=== PATIENT | male | born 1940 | race Caucasian/White ===

== ENCOUNTER 2019-04-17 06:24 | Inpatient (IN) | payer MEDICARE, BC ==
[2019-04-06 09:19] LABS: ABSOLUTE BASOPHILS 0.1 thou/uL (0.0-0.2); ABSOLUTE EOSINOPHILS 0.2 thou/uL (0.0-0.7); ABSOLUTE MONOCYTES 0.4 thou/uL (0.0-1.2); ABSOLUTE NEUTROPHILS 2.9 thou/uL (1.6-8.1); BASOPHILS 1.2 %; EOSINOPHILS 3.7 %; HEMATOCRIT 40.6 % (42.0-52.0); HEMOGLOBIN 13.5 gm/dL (14.0-18.0); LYMPHOCYTES 35.5 %; MCH 32.7 pg (26.0-34.0); MCHC 33.3 g/dL (28.0-37.0); MONOCYTES 7.4 %; MPV 8.9 fl. (7.2-11.1); NUCLEATED RBCS 0 /100WBC; PLATELET COUNT* 237 thou/uL (150-400); POLYS 52.2 %; RBC 4.14 mil/uL (4.50-6.00); RDW-CV 13.9 % (10.5-14.5); WBC 5.6 thou/uL (4.0-11.0)
[2019-04-06 09:34] LABS: APTT 25.6 Seconds (25.0-31.3); PROTIME 10.3 Seconds (9.20-11.50)
[2019-04-06 09:39] LABS: ALBUMIN 3.9 g/dL (3.4-5.0); CREATININE 1.3 mg/dL (0.6-1.3); POTASSIUM 4.1 mmol/L (3.5-5.1); TOTAL BILIRUBIN 0.5 mg/dL (<0.1-1.0); TOTAL PROTEIN 7.6 g/dL (6.4-8.2)
[2019-04-06 10:19] LABS: ESR (SEDRATE) 6 mm/hr (0-20)
[2019-04-07 02:07] LABS: GLYCOHEMOGLOBIN (HGB A1C) 7.1 % (4.8-5.6)
[~2019-04-17] VITALS: Ht 182.9 cm; Wt 90.7 kg
--- NOTE | ~2019-04-17 | OP ---
[address] [address] OPERATIVE REPORT Name: JOAN BULLOCK Room: [address] IN M.R.#: [id number] Admission: 04/17/19 Attend Phys: Herbie Green DO Discharge: Date of : 42 Report #: [id number] THIS REPORT FOR: //name// cc: STEVEN DENIS NP, RUTENDO NP ~ THIS REPORT FOR: //name// CC: Herbie DENIS DICTATED BY: Adonay Morris DO DATE OF SERVICE: 04/17/2019 PREOPERATIVE DIAGNOSIS: Left knee severe osteoarthritis. POSTOPERATIVE DIAGNOSIS: Left knee severe osteoarthritis. OPERATION PERFORMED: Left total knee arthroplasty. SURGEON: Herbie Green DO ASSISTANTS: Adonay Morris DO and Abdi Kebede DO ESTIMATED BLOOD LOSS: 100 mL. ANTIBIOTICS: 600 mg of IV clindamycin given within 1 hour of skin incision. ANESTHESIA: Preoperative adductor canal block with general anesthesia and local infiltration of the posterior capsular structure. DRAINS: None. SPECIMENS: None. COMPLICATIONS: None. CONDITION: Stable. DISPOSITION: PACU to orthopedic floor. OPERATIVE IMPLANTS: The Perfecto Persona total knee system was used with following components: 1. A size H natural tibia component. 2. A size 11 narrow cruciate retaining femoral component. 3. A size 35 mm all poly patellar component. [facility] [address] [address] OPERATIVE REPORT Name: JOAN BULLOCK Room: [place] [address] ADM IN M.R.#: [id number] Admission: 04/17/19 Attend Phys: Herbie Green DO Discharge: Date of : 42 Report #: [id number] 4. A 12 mm height medial congruent articular surface and also 2 bags of Palacos bone cement with gentamicin were used for implantation. INDICATIONS FOR PROCEDURE: This patient is a pleasant 78-year-old male who is followed in orthopedic clinic regarding his longstanding left knee pain. X-rays were consistent with severe degenerative changes with valgus deformity. He tried conservative treatment over the last several years. He has attempted physical therapies, multiple injections ties including stem cells and corticosteroid. Despite trying these things, he continued to have severe pain, continued debility. Therefore, we did discuss proceeding with left total knee arthroplasty. Risks, indications, and treatment alternatives were discussed with the patient in the office setting and his informed consent was obtained DESCRIPTION OF PROCEDURE: The patient was taken to the operating suite and placed on operating table in supine position where general anesthesia was then induced. A well-padded tourniquet was placed on the left proximal thigh and of note this was inflated for a total of 74 minutes throughout the procedure at 300 mmHg. Left lower extremity was then sterilely prepped with ChloraPrep and draped free in the usual fashion. Timeout was then performed to confirm the safety checklist has been completed and all the present OR personnel were in agreement. Standard anterior incision was marked out over the knee. The extremity was elevated for gravity exsanguination and the tourniquet was inflated. A midline incision was made with a 20 blade scalpel was carried down through the skin and subcutaneous tissue down to level of the extensor mechanism. Full thickness flaps were developed. The new blade was then used to make the standard medial parapatellar arthrotomy. A subperiosteal sleeve was developed off the medial tibial plateau. This dissection was limited due to the valgus nature of the knee. The patella was then everted. The large portion of the infrapatellar fat pad was excised. Large osteophytes were removed with a rongeur. Access was then gained to the intramedullary canal with the large drill. The distal femur cutting block was initially set to 12 mm and this was pinned into position at 4 degrees of valgus. The cut was then made through the capture block. The bony wafer was removed. Attention was then taken to the proximal tibia. Extramedullary tibial cutting block and guide were placed and aligned in all planes. We did reference the high side, which was the medial tibial plateau in this case and did take an initial 10 mm cut through the capture block. The collateral ligaments and patellar tendon were protected while the cut was made through the capture block. The bony wafer was then removed. The knee was taken to full extension and our extension block was checked and there was found to be tight in both full extension and flexion. Therefore, we did proceed with an additional cut 2 mm from both the distal femur and the proximal tibia. The extension and flexion blocks were then once again checked and found to be symmetrical and able to obtain full extension. The pins were then removed. The knee was once again hyperflexed. The distal femur was then measured from anterior to posterior and the appropriate 3-degree external rotation holes were drilled. The size 11, 4-in-1 [place] [address] OPERATIVE REPORT Name: JOAN BULLOCK Room: [address] IN M.R.#: [id number] Admission: 04/17/19 Attend Phys: Herbie Green DO Discharge: Date of : 42 Report #: [id number] onto the distal femur. We confirmed this to be appropriate cut with an maggie wing. This was then pinned into position and the cut was made through the capture block. All the bony wafers were then removed. At this time, the remaining osteophytes and meniscal remnants were removed as well as the ACL and PCL remnant. Once we had excellent exposure to the proximal tibia, this was sized to the appropriate size. Tibial baseplate was aligned in the appropriate rotation and pinned into position. The appropriate size trial femur was then made impacted on to distal femur. Multiple size tibial bearings were then trialed. Ultimately a size 12 mm bearing gave full extension, full flexion, and excellent stability in all planes. Attention was then taken to patella. This was resurfaced with a freehand technique resecting approximately 8 mm of bone. The patella was appropriately sized and the three peg holes were drilled through the guide. A patellar button was then placed and taken through full range of motion and found to be tracking appropriately. At this time, the trial patella was removed and the peg holes were drilled in the femur and this was also removed. The tibia was prepared for final implantation with the reamer and cruciform punch. This was finally removed. The anesthetic cocktail was injected in the posterior capsular structures. The knee was then copiously irrigated. The bone cement was mixed on the back table and applied to the undersurface of the final components. This was also pressurized by hand and using the cement gun into the inner stitches of the bone. The final components were then impacted into position beginning with the tibia, followed by the femur and finally the patellar component, which was clamped in position. The knee was taken into full extension with a 12 mm bearing. The cement was allowed to completely harden with the knee in full extension. Once the cement was completely hardened, the knee was once again confirmed to have appropriate tension and the balance with a 12 mm spacer. Therefore, we did replace this trial spacer for the final component, which was appropriately locked into position. The knee was once again taken through final range of motion and found to be tracking appropriately and stable in all planes. The layered closure was then performed beginning with a #1 Vicryl suture in bawrld-aq-[id number] fashion throughout the extensor mechanism which was then oversewn with a #1 Stratafix suture. The PRP was injected through the capsule at this time. The subcutaneous layer was then reapproximated with simple buried 2-0 Vicryl suture followed by a running 3-0 Stratafix on the subcuticular layer. Skin glue was applied to the incision and allowed to dry, followed by application of Mepilex and thigh high CORKY hose. The patient was found to tolerate the procedure well with no apparent complications and was transferred to the PACU in stable condition. No apparent complications. Sponge and needle counts were correct per the OR personnel. ATTESTATION: Dr. Herbie Green was present for all critical aspects of surgery. By: [id number] Green DO /nt
[~2019-04-17 06:24] MED LIST: ASPIRIN EC325 MG PO; CENTRUM SILVER1 EAC4 PO; COQ1050 MG PO; FLAX SEED OIL1 EACH PO; GLUCOPHAGE1000 MG PO; JARDIANCE25 MG PO; LIPITOR40 MG PO; LOSARTAN-HCTZ1 EACH PO; NORVASC10 MG PO; OMEGA 3 1,0001 EACH PO
[2019-04-17 08:40] VITALS: BP 138/76
[2019-04-17 16:42] VITALS: BP 144/90
[2019-04-17 20:40] VITALS: BP 156/91
[2019-04-18] VITALS (7 sets, daily range): BP systolic 131–171; BP diastolic 85–101
[2019-04-18 03:12] LABS: HEMATOCRIT 37.2 % (42.0-52.0); HEMOGLOBIN 12.6 gm/dL (14.0-18.0)
[2019-04-18] MEDS ORDERED: ELIQUIS5 MG PO (09:57)
[2019-04-18] MEDS ORDERED: COLACE 100 MG100 MG PO (09:57)
[2019-04-18] MEDS ORDERED: OXYCODONE HCL 55 MG PO (09:57)
[2019-04-18] MEDS ORDERED: TRAMADOL 50 MG50 MG PO (09:57)
[2019-04-19 03:06] LABS: HEMATOCRIT 39.2 % (42.0-52.0); HEMOGLOBIN 13.1 gm/dL (14.0-18.0)
[2019-04-19 08:00] VITALS: BP 129/76
[2019-04-19 16:00] VITALS: BP 110/66
[2019-04-19 19:42] VITALS: BP 129/81
[2019-04-20] VITALS: BP 131/77
[2019-04-20 04:00] VITALS: BP 130/77
[2019-04-20 08:30] VITALS: BP 105/65
[2019-04-20 14:39] VITALS: BP 105/65
--- NOTE | 2019-04-21 14:53 | EKG ---
[place] [address] ELECTROCARDIOGRAM REPORT Name: JOAN BULLOCK Room: [address]#: [id number] Admission: 04/17/19 Attend Phys: Campos Esposito Discharge: 04/20/19 Date of : 42 Date of Service: 04/06/19 0911 Report #: [id number] THIS REPORT FOR: //name// [facility] Test Date: 2019-04-06 Test Time: 09:11:49 Pat Name: JOAN BULLOCK Department: Room: Gender: M Youth Director: : 1940 Requested By: Herbie Green Order Number: [id number] Reading MD: Giancarlo Osuna Measurements Intervals [place] Rate: 73 P: 54 CO: 165 QRS: -63 QRSD: 111 T: 48 QT: 379 QTc: 418 Interpretive Statements Sinus rhythm Left anterior fascicular block Low voltage, precordial leads Left ventricular hypertrophy Anterior Q waves, possibly due to LVH ST elevation, consider inferior injury No previous ECG available for comparison Electronically Signed On 04-06-2019 11:21:30 SE[employer]ER by Giancarlo Osuna [email or web address] <ELECTRONICALLY SIGNED> By: Giancarlo Osuna MD, FACC 04/06/19 1121 0 09 Giancarlo Osuna MD, FACC /EPI
== END 2019-04-20 16:11 | disposition home health service (06) | DRG 470 ==
LOC: M.TBA 06:24 → M.PRE 06:35 → M.ORTHSURG 11:18 → M.TBA 11:18 → M.ORTHSURG 14:50
PROVIDERS: Orthopaedic Surgery; ADMIT Internal Medicine
PROC: 0SRD0J9 Replacement of Left Knee Joint with Synthetic Substitute, Cemented, Open Approach (ICD-10-PCS; principal; 2019-04-17)
DX: M17.12 Unilateral primary osteoarthritis, left knee (principal); E11.9 Type 2 diabetes mellitus without complications; E78.00 Pure hypercholesterolemia, unspecified; I10 Essential (primary) hypertension; N40.0 Benign prostatic hyperplasia without lower urinary tract symptoms; Z86.73 Personal history of transient ischemic attack (TIA), and cerebral infarction without residual deficits; Z98.42 Cataract extraction status, left eye; Z98.41 Cataract extraction status, right eye; Z79.899 Other long term (current) drug therapy

== ENCOUNTER → 2019-10-16 | Outpatient (CLI) | payer MEDICARE, BC ==
[~2019-10-16] MED LIST changes: +COLACE 100 MG100 MG PO; +ELIQUIS5 MG PO; +OCUVITE TABLET1 EAC1 PO; +OXYCODONE HCL 55 MG PO; +TRAMADOL 50 MG50 MG PO
== END ==
LOC: M.CT 11:00
PROVIDERS: ATTEND Orthopaedic Surgery
DX: M25.511 Pain in right shoulder (principal); Z96.611 Presence of right artificial shoulder joint

== ENCOUNTER → 2019-11-08 | Outpatient (CLI) | payer MEDICARE, BC ==
[2019-11-08 08:27] LABS: ABSOLUTE BASOPHILS 0.1 thou/uL (0.0-0.2); ABSOLUTE EOSINOPHILS 0.2 thou/uL (0.0-0.7); ABSOLUTE LYMPHOCYTES 2.1 thou/uL (0.8-5.3); ABSOLUTE MONOCYTES 0.5 thou/uL (0.0-1.2); ABSOLUTE NEUTROPHILS 2.5 thou/uL (1.6-8.1); BASOPHILS 1.1 %; EOSINOPHILS 3.9 %; HEMATOCRIT 39.6 % (42.0-52.0); HEMOGLOBIN 13.8 gm/dL (14.0-18.0); LYMPHOCYTES 38.7 %; MCH 33.5 pg (26.0-34.0); MCHC 34.8 g/dL (28.0-37.0); MCV 96.3 fL (80.0-100.0); MONOCYTES 9.4 %; MPV 8.3 fl. (7.2-11.1); NUCLEATED RBCS 0 /100WBC; PLATELET COUNT* 239 thou/uL (150-400); POLYS 46.9 %; RBC 4.11 mil/uL (4.50-6.00); RDW-CV 14.5 % (10.5-14.5); WBC 5.4 thou/uL (4.0-11.0)
[2019-11-08 08:32] LABS: APTT 24.5 Seconds (25.0-31.3)
[2019-11-08 08:35] LABS: ALBUMIN 3.9 g/dL (3.4-5.0); CALCIUM 9.4 mg/dL (8.5-10.1); CREATININE 1.5 mg/dL (0.6-1.3); POTASSIUM 3.8 mmol/L (3.5-5.1); TOTAL BILIRUBIN 0.6 mg/dL (<0.1-1.0); TOTAL PROTEIN 7.3 g/dL (6.4-8.2)
[2019-11-08 09:30] LABS: ESR (SEDRATE) 5 mm/hr (0-20)
--- NOTE | 2019-11-08 10:15 | EKG ---
[place] [address] ELECTROCARDIOGRAM REPORT Name: JOAN BULLOCK Adilene Room: [facility]#: [id number] Admission: 11/08/19 Attend Phys: Herbie Green DO Discharge: Date of : 42 Date of Service: 1940 Report #: [id number] THIS REPORT FOR: //name// [facility] Test Date: 2019-11-08 Test Time: 08:41:11 Pat Name: JOAN BULLOCK Department: Room: Gender: Electrical Machinist: : 1940 Requested By: Herbie Green Order Number: [id number] Reading MD: Herbie Vann Measurements Intervals [place] Rate: 70 P: 62 [place]: 169 QRS: -58 QRSD: 117 T: 75 QT: 402 QTc: 434 Interpretive Statements Sinus rhythm Atrial premature complex Left anterior fascicular block Compared to ECG 04/06/2019 09:11:49 Atrial premature complex(es) now present Electronically Signed On 11-08-2019 10:15:38 CDT by Herbie Vann [email or web address] <ELECTRONICALLY SIGNED> By: Herbie Vann MD, [facility] 11/08/19 1015 Herbie Vann MD, [facility] /EPI
[2019-11-09 03:06] LABS: GLYCOHEMOGLOBIN (HGB A1C) 6.8 % (4.8-5.6)
== END ==
LOC: M.LAB 11-07 10:47
PROVIDERS: ATTEND Orthopaedic Surgery
DX: Z01.812 Encounter for preprocedural laboratory examination (principal); Z20.828 Contact with and (suspected) exposure to other viral communicable diseases; I44.4 Left anterior fascicular block; M25.561 Pain in right knee; I49.9 Cardiac arrhythmia, unspecified; R94.31 Abnormal electrocardiogram [ECG] [EKG]; M19.011 Primary osteoarthritis, right shoulder; M17.11 Unilateral primary osteoarthritis, right knee; E11.9 Type 2 diabetes mellitus without complications; Z79.899 Other long term (current) drug therapy

== ENCOUNTER 2019-11-13 09:58 | Observation (INO) | payer MEDICARE, BC ==
[~2019-11-13] VITALS: Ht 182.9 cm; Wt 86.2 kg
--- NOTE | ~2019-11-13 | OP ---
[address] [address] OPERATIVE REPORT Name: JOAN BULLOCK Room: [address] M.RRosas#: [id number] Admission: 11/13/19 Attend Phys: Darrell Nolan Discharge: Date of : 42 Report #: [id number] THIS REPORT FOR: //name// cc: STEVEN DENIS NP, RUTENDO NP ~ CC: Herbie Esposito DICTATED BY: Soham Landrum DO DATE OF SERVICE: 11/13/2019 PREOPERATIVE DIAGNOSIS: Right shoulder rotator cuff arthropathy. POSTOPERATIVE DIAGNOSIS: Right shoulder rotator cuff arthropathy. PROCEDURE PERFORMED: Right reverse total shoulder arthroplasty utilizing the Tornier reverse total shoulder system with the following components: 1. A size 5 humeral stem. 2. A +0 mm lowest in eccentricity reverse tray. 3. A +6 mm ultra high molecular weight reverse polyethylene insert. 4. A 29 mm baseplate with 35 mm threaded post. 5. A two 26 mm locking screws and one 32 mm compression screw in the baseplate. 6. A 42 mm +2 eccentricity glenosphere. SURGEON: Herbie Green DO [employer] MECHANIC: Soham Landrum DO and Ni Cid DO ANESTHESIA: General with interscalene nerve block. ESTIMATED BLOOD LOSS: 100 mL. ANTIBIOTICS: 2 grams Ancef IV preoperatively. COMPLICATIONS: None. COMPLICATIONS: None. CONDITION: The patient is stable to PACU. INDICATIONS FOR PROCEDURE: This is a pleasant 79-year-old male seen and examined in outpatient orthopedic clinic with regards to his right shoulder. Radiographs demonstrated advanced degenerative joint disease with complete collapse of the humeral head, subchondral sclerosis, [place] [address] OPERATIVE REPORT Name: JAMIE BULLOCKN Adilene Room: [address] Kevin#: [id number] Admission: 11/13/19 Attend Phys: Darrell Nolan Discharge: Date of : 42 Report #: [id number] There is high riding humeral head. Exam was consistent with a rotator cuff arthropathy. Treatment options were discussed in detail with the patient. He tried and failed conservative treatments including anti-inflammatories, activity modification and injections. Risks, benefits, alternatives and complications of reverse total shoulder were discussed with the patient. He did wish to proceed with this. DESCRIPTION OF PROCEDURE: The patient was seen and examined in the preoperative holding area. The correct operative extremity was marked. Written consent was obtained. The patient was transferred to the operating room and placed supine on the operating table. He was given the benefit of general anesthesia. He was then placed into the beach chair position. Right upper extremity was prepped and draped in the usual sterile fashion. Timeout was performed to verify the correct patient, procedure and operative extremity and all were in agreement. An incision was made over the right shoulder for the standard deltopectoral approach. Dissection was carried down to the interval and blunt dissection was used to identify the cephalic vein. This was retracted laterally with the deltoid. Subdeltoid adhesions were removed. The deltoid retractor was then placed and the deltoid retracted laterally. The clavipectoral fascia was then incised allowing the conjoined tendon to be retracted medially. Next, the superior border of the pectoralis major tendon was then released approximately 1 cm. The biceps tendon was then identified and a biceps tenotomy was performed. The biceps tendon was followed up to the glenoid identifying the rotator interval. Next, the subscapularis tendon was then released with a peel back technique. This was released around the inferior medial aspect of the humeral head and neck. Multiple osteophytes were encountered. The shoulder was then dislocated anteriorly exposing the humeral head. Osteophytes were removed with a rongeur. Next, the intramedullary humeral cut guide was inserted into the appropriate position. The humeral cut was then performed in the standard fashion. Excess bone was removed. The remainder of the osteophytes were removed off the humerus. The humerus was then reamed and broached up to a size 5. The calcar planer was used. Attention was then turned to the glenoid. Appropriate retractors were placed. Remainder of the labrum was then removed. All soft tissue was released off the glenoid. The central guide pin was then placed into the glenoid. The glenoid was then reamed sequentially over the central guide pin. Next, the glenoid was drilled and measured to a size 35. The 35 length threaded post- baseplate was then inserted into position. This was noted to have excellent stability, but was secured with 3 screws into the baseplate. Next, various glenospheres were trialled. Attention was then turned back to the humerus, which was trialled and various sizes of trays as well as polyethylene components. Ultimately, the +6 poly insert with a +0 low eccentricity reverse tray and eccentric glenosphere noted to have excellent range of motion and excellent stability. Trial components were removed. The final glenosphere was impacted into position. Attention was then turned back to the humerus. The final humeral stem and tray and poly insert were then inserted. The shoulder was reduced. This was noted to have excellent stability [facility] [address] [place] [address] OPERATIVE REPORT Name: JAMIE BULLOCKDavid Head Room: [address] Gris Brown#: [id number] Admission: 11/13/19 Attend Phys: Darrell Nolan Discharge: Date of : 42 Report #: [id number] and full range of motion. The shoulder was thoroughly irrigated with normal saline. The interval was closed with #1 Vicryl in interrupted arrdou-nc-znlkr fashion, followed by #2 Vicryl subcutaneously and a running 3-0 Stratafix on the skin. The skin glue was then applied. Sterile dressing was applied. The patient was then awakened from anesthesia and transferred to PACU in stable condition. The patient tolerated the procedure well and no complications. By: [id number] Green DO /pam
[2019-11-13 10:30] VITALS: BP 155/79
[2019-11-13 16:00] VITALS: BP 140/65
[2019-11-13 19:40] VITALS: BP 130/77
[2019-11-13 23:21] VITALS: BP 105/66
[2019-11-14 04:00] VITALS: BP 116/66
[2019-11-14 07:10] VITALS: BP 126/72
[2019-11-14] MEDS ORDERED: OXYCODONE HCL 55 MG PO (09:07)
[2019-11-14] MEDS ORDERED: ELIQUIS5 MG PO (09:07)
[2019-11-14 12:02] VITALS: BP 126/72
[2019-11-14 12:03] VITALS: BP 126/72
[2019-11-14 13:58] VITALS: BP 126/72
[2019-11-14 14:46] VITALS: BP 126/72
== END 2019-11-14 14:47 | disposition home or self-care (01) ==
LOC: M.TBA 09:58 → M.PRE 11:03 → M.TBA 13:24 → M.ORTHSURG 15:38
PROVIDERS: ADMIT Internal Medicine; ATTEND Internal Medicine
DX: M19.011 Primary osteoarthritis, right shoulder (principal); I10 Essential (primary) hypertension; E11.9 Type 2 diabetes mellitus without complications; M17.12 Unilateral primary osteoarthritis, left knee; E78.00 Pure hypercholesterolemia, unspecified; Z79.82 Long term (current) use of aspirin; Z79.899 Other long term (current) drug therapy; Z23 Encounter for immunization; Z86.73 Personal history of transient ischemic attack (TIA), and cerebral infarction without residual deficits